=== PATIENT | female | born 1975 | race Caucasian/White ===

== ENCOUNTER 2017-12-01 10:01 | Outpatient (CLI) | payer OTHER | END 2017-12-01 10:41 | disposition home or self-care (01) | LOC: SONOGRAMA 10:01 | DX: E04.2 Nontoxic multinodular goiter (principal) ==

== ENCOUNTER 2021-03-30 08:45 | Outpatient (CLI) | payer OTHER | END 2021-03-30 10:47 | disposition home or self-care (01) | LOC: SONOGRAMA 08:45 | PROVIDERS: ATTEND Pathology Anatomic Pathology & Clinical Pathology | DX: D34 Benign neoplasm of thyroid gland (principal); E06.3 Autoimmune thyroiditis ==

== ENCOUNTER 2023-06-23 08:22 | Outpatient (CLI) | payer OTHER | END 2023-06-23 08:26 | disposition home or self-care (01) | LOC: SONOGRAMA 08:22 | PROVIDERS: ATTEND Pathology Anatomic Pathology & Clinical Pathology | DX: D34 Benign neoplasm of thyroid gland (principal); E06.3 Autoimmune thyroiditis; E04.2 Nontoxic multinodular goiter ==